=== PATIENT | male | born 1965 | race Caucasian/White ===

== ENCOUNTER 2023-01-03 11:02 | Emergency (ER) | payer OTHER, SELFPAY ==
--- NOTE | ~2023-01-03 | CT_ITS ---
EXAMINATION: CT CERVICAL SPINE without contrast CLINICAL INFORMATION: Pain, trauma COMPARISON: No prior CT available, TECHNIQUE: Computed axial sagittal and coronal images acquired using department's standard protocol. This CT examination was performed using dose optimization techniques as appropriate, variously including the following: *Automated exposure control *Adjustment of mA and/or kV according to patient size (this includes techniques or standardized protocols for targeted exams where dose is matched to indication/reason for exam; i.e. extremities or head) *Use of iterative reconstruction technique CONTRAST: None DLP: 472 mGy-cm FINDINGS: SKULL BASE: Visualized structures at skull base are normal, Included facial sinuses are clear, CERVICAL VERTEBRAE: Seven cervical vertebrae identified maintaining proper height and alignment, loss of normal cervical lordosis probably spasm. DISCS: Loss of disc height and developed osteophyte from the edges of endplates at C4-C5 and C5-C6 C6-C7 and C7-T1 suggests underlying degenerative disc disease. C1-C2: There is no CT evidence of significant osseous narrowing of the central canal or neural foramen. C2-C3: There is no CT evidence of significant osseous narrowing of the central canal or neural foramen. C3-C4: There is no CT evidence of significant osseous narrowing of the central canal or neural foramen. C4-C5: There is no CT evidence of significant osseous narrowing of the central canal or neural foramen. C5-C6: Facet joints arthropathy and developed osteophyte ridge from the endplates encroaching on the neural foramen bilaterally especially on the left concerning for possible underlying left foraminal stenosis. There is no fracture. C6-C7: There is no CT evidence of significant osseous narrowing of the central canal or neural foramen. C7-T1: There is no CT evidence of significant osseous narrowing of the central canal or neural foramen. PARAVERTEBRAL SOFT TISSUE: Paravertebral soft tissues unremarkable. CT/CT cervical spine wo IV con IMPRESSION: * No CT evidence of cervical spine fracture. * Loss of normal cervical lordosis probably spasm. * Loss of disc height and developed osteophyte from the edges of endplates at multiple levels suggest underlying degenerative disc disease. * Developed osteophyte from the endplates encroaching on the neural foramen bilaterally especially on the left at C5-C6 concerning for possible underlying foraminal stenosis. If patient has neurological symptoms may consider correlation with MRI.
--- NOTE | ~2023-01-03 | CT_ITS ---
CT head/brain wo IV con CLINICAL INFORMATION: Reason for Exam head trauma, pain COMPARISON: No prior CT scan available for comparison. TECHNIQUE: Department standard protocol. This CT examination was performed using dose optimization techniques as appropriate, variously including the following: *Automated exposure control *Adjustment of mA and/or kV according to patient size (this includes techniques or standardized protocols for targeted exams where dose is matched to indication/reason for exam; i.e. extremities or head) *Use of iterative reconstruction technique DLP: 708 mGy-cm FINDINGS: CEREBRAL HEMISPHERES: There is no evidence of intra-axial or extra-axial mass, hemorrhage or acute infarct. BRAIN PARENCHYMA: Normal salazar-white matter differentiation. SUBDURAL SPACE: No bleed. BASAL GANGLIA AND PINEAL GLAND: Unremarkable VENTRICLES: Symmetric and normal in size. CEREBELLUM AND BRAINSTEM: No space-occupying mass, hemorrhage or acute infarct. CEREBELLOPONTINE ANGLES: No lesion found. ORBITS: No intraorbital mass. VESSELS: Unremarkable SKULL BASE: Unremarkable INCLUDED SINUSES AT SKULL BASE: Clear SKULL AND SKIN: No fracture or bone lesion found. CT/CT head/brain wo IV con IMPRESSION: No CT evidence of intracranial space-occupying mass, bleed or infarct.
--- NOTE | ~2023-01-03 | XR_ITS ---
EXAMINATION: XR SHOULDER, RIGHT CLINICAL INFORMATION: Right shoulder pain status post trauma. COMPARISON: None available. TECHNIQUE: AP external rotation, Grashey, scapular Y, and axillary views of the right shoulder. FINDINGS: Mild right acromioclavicular degenerative joint changes are seen. There is no acute fracture or dislocation. The right glenohumeral joint is unremarkable. The visualized right ribs are intact with the soft tissues are unremarkable. XR/XR shoulder RT min 2V IMPRESSION: Mild right acromioclavicular degenerative joint changes. No acute fracture.
--- NOTE | ~2023-01-03 | CT_ITS ---
EXAMINATION: CT FACIAL BONES CLINICAL INFORMATION: Trauma COMPARISON: None TECHNIQUE: CT axial sagittal and coronal, department standard protocol. This CT examination was performed using dose optimization techniques as appropriate, variously including the following: *Automated exposure control *Adjustment of mA and/or kV according to patient size (this includes techniques or standardized protocols for targeted exams where dose is matched to indication/reason for exam; i.e. extremities or head) *Use of iterative reconstruction technique FINDINGS : SKULL BASE: Included structures at skull base are normal. BONES: Skull base, orbital bones, nasal bones, maxillary bones, mandibles, zygomatic arches, ORBITS: Globes are symmetric. Orbital structures are normal. SALIVARY GLANDS: Unremarkable SINUSES: There is a retention cyst in the floor of the right maxillary sinus 1.2 cm, paranasal sinuses otherwise are clear. CT/CT facial bones wo IV con IMPRESSION: * No CT evidence of facial bone fractures. * There is a 1.2 cm retention cyst in the floor of the right maxillary sinus.
--- NOTE | 2023-01-03 11:23 | ED_ITS ---
HPI - General Adult General Chief complaint: Head Injury Stated complaint: Lip Injury Time Seen by Provider: 01/03/23 11:45 Source: patient and RN notes reviewed Mode of arrival: ambulatory Limitations: no limitations History of Present Illness HPI narrative: This is a 57-year-old male, with a past medical history of hypertension and chronic right shoulder pain, presenting to the emergency department with complai nts of facial pain status post being struck in the face by a tree branch today. Pt states that while he was working in his lawn, cutting up tree branches, and one large tree branch flew back and struck him in the face and he fell to the ground, landing on his hands and knees. He denies loss of consciousness. Reporting left sided facial pain and headache. Denies dizziness, weakness, numbness, tingling, neck pain, chest pain, shortness of breath. He also endorses worsening right shoulder pain, unsure what he did to it during this trauma. Denies any other complaints or concerns at this time. MD complaint: Lip Injury, closed head injury Onset (ago): minute(s) Location: head, face and upper extremity Radiation: non-radiation Severity: moderate Quality: crushing Pain Consistency: constant Relieving factors: cold therapy Exacerbating factors: none Associated symptoms: denies other symptoms Treatments prior to arrival: none Related Data Previous Rx's Medication Instructions Recorded acetaminophen 325 mg tablet 650 mg PO Q4-6H PRN pain #45 tabs 01/03/23 (Tylenol) ibuprofen 800 mg tablet 800 mg PO TID PRN pain #45 tabs 01/03/23 Allergies Allergy/AdvReac Type Severity Reaction Status Date / Time acetaminophen [From Vicodin] Allergy Rash Verified 01/03/23 11:24 hydrocodone [From Vicodin] Allergy Rash Verified 01/03/23 11:24 Review of Systems Review of Systems: Yes all other systems are reviewed and are negative Constitutional: Constitutional: Reports as per [facility] Past Medical History Attestation statement: The following information was validated with the patient. Social History Social History Advance Directives: Yes Advance Directives Information Provided: Yes Advance Directives on File: No Physical Exam ED Vital Signs: Vital Signs - 24 hr 01/03/23 11:25 01/03/23 12:05 Temperature 97.9 F Pulse Rate 61 58 Respiratory Rate 16 18 Blood Pressure 170/98 H 146/85 H Pulse Oximetry 97 100 Oxygen Delivery Method Room Air Room Air BMI result Body Mass Index 31.6 Const General: cooperative, comfortable and no acute distress Orientation/consciousness: patient oriented x3 Limitations: no limitations HENMT Other: Left chin with superficial abrasaions noted. There is a 1cm linear partial thickness laceration with active bleeding. Left lower lip with mild edema and TTP. No overlying lip laceration noted. No dental pain, or loose teeth noted. Head: Yes normal to inspection and Yes normocephalic Ears: hearing grossly normal bilaterally General nose exam: Normal external nose present Face and sinus: Yes normal facial exam Mouth: Normal oral and palatal mucosa present, tongue normal, oropharynx normal and moist mucous membranes Teeth and gingiva: dentition normal Throat: Yes posterior oropharynx normal Eyes General: appearance normal, both eyes and all related structures Eyelids: Yes eyelids normal Conjunctivae: conjunctivae normal Sclerae: sclerae normal Pupils: Equal, round and reactive pupils present EOM: EOMs intact bilaterally Neck Neck: Yes normal visual inspection, Yes full ROM and Yes no lymphadenopathy Lymphatic: no lymphadenopathy noted Chest Chest palpation & inspection: normal inspection of the chest and normal palpation of entire chest wall Resp Effort & Inspection: normal respiratory effort and able to speak in complete sentences Auscultation: clear to auscultation bilaterally, no crackles, no rales, no rhonchi and no wheezes Cardio Rate: regular rate Rhythm: regular rhythm Heart sounds: S1 normal heart sound present and S2 normal heart sound present GI Other: Abdomen is soft, nontender, nondistended. Normoactive bowel sounds present in all 4 quadrants. Inspection: Yes normal to inspection General: Yes no CVA tenderness Back/Spine/Pelvis Other: No midline spine tenderness to palpation. Back: no CVA tenderness Cervical Spine: normal cervical lordosis Thoracic/Lumbar Spine: thoracic and lumbar spine normal to inspection Skin General skin exam: no rashes or lesions noted Trauma: no lacerations or abrasions Wounds: no wounds Neuro General: patient oriented x3 and moves all extremities Cranial nerves: Yes Equal, round and reactive pupils present Extrem Other: Right shoulder with no obvious bony deformities or swelling. TTP throughout right AC joint. Full ROM of the right shoulder intact. Radial pulses 2+. General: Yes normal to inspection Right upper extremity: normal to inspection Left upper extremity: normal to inspection Right lower extremity: normal to inspection Left lower extremity: normal to inspection Course Course Course Narrative: RME performed by Alicia Chavis PA-C. Patient is a 57 year old assigned male at presenting to the emergency department after being hit in the face by a tree branch. Patient states that his right shoulder and face hurt. Patient states that he has a history of HTN. Imaging ordered. Patient placed back in the waiting room pending room availability and results. Reevaluation(s) Reevaluation #1: Review of CTs revealing no acute findings. 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 Pt's pain well controlled at this time. Given strict return precautions. Patient understands and agrees with plan. Pt stable for discharge. Medications Administered Discontinued Medications Generic Name Dose Route Start Last Admin Trade Name Freq PRN Reason Stop Dose Admin Diphtheria/Tetanus/Acell Pertussis 0.5 ml 01/03/23 11:26 01/03/23 11:47 Diphth,Pertus(Acell),Tet Adult 0.5 Ml Syringe IM 01/03/23 11:27 0.5 ml .ONCE ONE Administration Procedures Procedure Narrative Procedure Narrative: Wound cleansed with betadine and saline. Wound closed using dermabond. Good wound approximation achieved. Pt tolerated procedure well without any complications or concerns. Medical Decision Making Medical Decision Making [facility] Narrative: 57 y/o M, hx of htn and chronic right shoulder pain presenting to the ER with complaints of left sided facial pain, headache, and right shoulder pain s/p being struck in the face by a treebranch at his home. On arrival, patient is mildly hypertensive at 170/98, all other vital signs within normal limits. Pt is alert and oriented x3. Will obtain CT head, facial bones, C-spine and right shoulder Plan: Head CT, Facial CT, C-spine CT, and shoulder xrays ordered Differential Diagnosis Differential Diagnoses: The differential diagnosis associated with the presentation includes ICH, closed head injury, laceration, syncope Lab Data MDM Lab Attestation statement: I reviewed the patient's lab results. Radiology Impression Discussion of test interpretation with radiology: I have reviewed the radiologist's reading. Radiologist Impression: CT head/brain wo IV con CLINICAL INFORMATION: Reason for Exam head trauma, pain COMPARISON: No prior CT scan available for comparison. TECHNIQUE: Department standard protocol. This CT examination was performed using dose optimization techniques as appropriate, variously including the following: *Automated exposure control *Adjustment of mA and/or kV according to patient size (this includes techniques or standardized protocols for targeted exams where dose is matched to indication/reason for exam; i.e. extremities or head) *Use of iterative reconstruction technique DLP: 708 mGy-cm FINDINGS: ? CEREBRAL HEMISPHERES: There is no evidence of intra-axial or extra-axial mass, hemorrhage or acute infarct. BRAIN PARENCHYMA: Normal salazar-white matter differentiation. SUBDURAL SPACE: No bleed. BASAL GANGLIA AND PINEAL GLAND: Unremarkable VENTRICLES: Symmetric and normal in size. CEREBELLUM AND BRAINSTEM: No space-occupying mass, hemorrhage or acute infarct. CEREBELLOPONTINE ANGLES: No lesion found. ORBITS: No intraorbital mass. VESSELS: Unremarkable SKULL BASE: Unremarkable INCLUDED SINUSES AT SKULL BASE: Clear SKULL AND SKIN: No fracture or bone lesion found. CT/CT head/brain wo IV con IMPRESSION: No CT evidence of intracranial space-occupying mass, bleed or infarct. ? Dictated By: Eben Yu MD Signed By: <Electronically signed by Eben Yu MD in [place]> 01/03/23 1221 EXAMINATION: CT FACIAL BONES CLINICAL INFORMATION: Trauma COMPARISON: None TECHNIQUE: CT axial sagittal and coronal, department standard protocol. This CT examination was performed using dose optimization techniques as appropriate, variously including the following: *Automated exposure control *Adjustment of mA and/or kV according to patient size (this includes techniques or standardized protocols for targeted exams where dose is matched to indication/reason for exam; i.e. extremities or head) *Use of iterative reconstruction technique FINDINGS : SKULL BASE: Included structures at skull base are normal. BONES: Skull base, orbital bones, nasal bones, maxillary bones, mandibles, zygomatic arches, ORBITS: Globes are symmetric. Orbital structures are normal. SALIVARY GLANDS: Unremarkable SINUSES: There is a retention cyst in the floor of the right maxillary sinus 1.2 cm, paranasal sinuses otherwise are clear. CT/CT facial bones wo IV con IMPRESSION: ? *? No CT evidence of facial bone fractures. ? *? There is a 1.2 cm retention cyst in the floor of the right maxillary sinus. ? Dictated By: Eben Yu MD Signed By: <Electronically signed by Eben Yu MD in [place]> 01/03/23 1244 EXAMINATION: CT CERVICAL SPINE without contrast CLINICAL INFORMATION: Pain, trauma COMPARISON: No prior CT available, TECHNIQUE: Computed axial sagittal and coronal images acquired using department's standard protocol. This CT examination was performed using dose optimization techniques as appropriate, variously including the following: *Automated exposure control *Adjustment of mA and/or kV according to patient size (this includes techniques or standardized protocols for targeted exams where dose is matched to indication/reason for exam; i.e. extremities or head) *Use of iterative reconstruction technique CONTRAST: None DLP: 472 mGy-cm FINDINGS:? SKULL BASE: Visualized structures at skull base are normal,? Included facial sinuses are clear,? CERVICAL VERTEBRAE: Seven cervical vertebrae identified maintaining proper height and alignment, loss of normal cervical lordosis probably spasm. DISCS: Loss of disc height and developed osteophyte from the edges of endplates at C4-C5 and C5-C6 C6-C7 and C7-T1 suggests underlying degenerative disc disease. C1-C2: There is no CT evidence of significant osseous narrowing of the central canal or neural foramen. C2-C3: There is no CT evidence of significant osseous narrowing of the central canal or neural foramen. C3-C4: There is no CT evidence of significant osseous narrowing of the central canal or neural foramen. C4-C5: There is no CT evidence of significant osseous narrowing of the central canal or neural foramen. C5-C6: Facet joints arthropathy and developed osteophyte ridge from the endplates encroaching on the neural foramen bilaterally especially on the left concerning for possible underlying left foraminal stenosis. There is no fracture. C6-C7: There is no CT evidence of significant osseous narrowing of the central canal or neural foramen. C7-T1: There is no CT evidence of significant osseous narrowing of the central canal or neural foramen. PARAVERTEBRAL SOFT TISSUE: Paravertebral soft tissues unremarkable. ? CT/CT cervical spine wo IV con IMPRESSION: ? *? No CT evidence of cervical spine fracture. ? *? Loss of normal cervical lordosis probably spasm. ? *? Loss of disc height and developed osteophyte from the edges of endplates at multiple levels suggest underlying degenerative disc disease. ? *? Developed osteophyte from the endplates encroaching on the neural foramen bilaterally especially on the left at C5-C6 concerning for possible underlying foraminal stenosis. If patient has neurological symptoms may consider correlation with MRI. ? Dictated By: Eben Yu MD EXAMINATION: XR SHOULDER, RIGHT CLINICAL INFORMATION: Right shoulder pain status post trauma.? COMPARISON: None available.? TECHNIQUE: AP external rotation, Grashey, scapular Y, and axillary views of the right shoulder. FINDINGS: Mild right acromioclavicular degenerative joint changes are seen. There is no acute fracture or dislocation. The right glenohumeral joint is unremarkable. The visualized right ribs are intact with the soft tissues are unremarkable.? XR/XR shoulder RT min 2V IMPRESSION: Mild right acromioclavicular degenerative joint changes. No acute fracture. ? Dictated By: Tip Ross MD Signed By: <Electronically signed by Tip Ross MD in [place]> 01/03/23 1153 External Record Review External record reviewed: Inpatient record, Office record, Outpatient record, Prior outpatient labs, Prior outpatient radiology, Primary care record and Outside ED record Discharge Plan Discharge Clinical Impression: Closed head injury, Laceration of face Patient Disposition: Home, Self-Care Instructions: Laceration (ED), Head Injury (ED), Skin Adhesive Care (ED), Laceration Without Closure (ED) Additional Instructions: Please rest, ice over the next couple of days. Your x-ray of your right shoulder shows mild right AC degenerative joint changes. There is no fracture seen. Your cervical spine CT shows no cervical spine fracture. You do have underlying degenerative disc disease. There is an osteophyte seen on C5-C6. Your CT head shows no acute process. Your CT of your facial bones does not show any acute fracture. Please do not pick at the skin glue. Allow skin glue to follow up on its own. Watch for any signs of infection including but not limited to worsening redness, swelling, fevers or chills. Return if any of these occur. Take Tylenol and/or Motrin as needed for pain and symptoms. If any new or worsening symptoms occur including but not limited to numbness, tingling, headaches, loss of consciousness, chest pain, shortness of breath, please return for re-evaluation. We gave your tetanus shot today. Prescriptions: New ibuprofen 800 mg tablet 800 mg PO TID PRN (Reason: pain) Qty: 45 0RF acetaminophen [Tylenol] 325 mg tablet 650 mg PO Q4-6H PRN (Reason: pain) Qty: 45 0RF Interventions: ED Discharge Assessment Last Done: 01/03/23 13:29 Discharge Date/Time: 01/03/23 13:31
[2023-01-03 11:25] VITALS: BP 170/98; PULSE 61; RESP 16; TEMP 36.6; O2SAT 97; BMI 31.6
[2023-01-03] MEDS: Diphth,Pertus(ACell),Tet Adult 0.5 ML SYRINGE IM (11:47)
[2023-01-03 12:05] VITALS: BP 146/85; PULSE 58; RESP 18; O2SAT 100
== END 2023-01-03 13:31 | disposition home or self-care (01) ==
PROVIDERS: Emergency Provider Emergency Medicine; PCP Family Medicine
DX: S01.511A Laceration without foreign body of lip, initial encounter (principal); S00.81XA Abrasion of other part of head, initial encounter; M25.511 Pain in right shoulder; R51.9 Headache, unspecified; M54.2 Cervicalgia; Y29.XXXA Contact with blunt object, undetermined intent, initial encounter; Y93.9 Activity, unspecified; Y92.9 Unspecified place or not applicable; Y99.8 Other external cause status; Z23 Encounter for immunization; Z79.899 Other long term (current) drug therapy
CPT/HCPCS: 70450; 70486; 72125; 73030; 90471; 90715; 99283